=== PATIENT | female | born 1970 | race Caucasian/White ===

== ENCOUNTER 2022-11-22 07:49 | Day surgery (SDC) | payer MEDICAID, SELFPAY ==
--- NOTE | 2022-11-22 | IMM_PTH ---
PATIENT: DARRYL BRADLEY LOC: [facility] – [place] U#:[id number] AGE/SX: 52/F ROOM: RE11/22/[address]: Dr. Jacquelin Hannon MD : 1970 BED: DIS: 11/22/2022 SPEC #: [id number] RECD: 11/26/22 13:58 STATUS: ROLANDA REQ #: [id number] DENILSON: 11/22/22 00:[address]: Jacquelin Hannon DEPT: IMMUNOHISTOCHEMISTRY RECD BY: Codie Mcintyre ENTERED: 11/26/22 13:59 SP TYPE: IMMUNO OTHR DR: No Primary Care Phys Tissues: Skin of face, NOS Procedures: CK5-6 (initial) CK5-6 (add) MART1 (add) P40 (add) S-100 (add) PHYSICIAN & INSTITUTION [place] [address] SPECIMEN INFORMATION: Tissue Source: Right protestant Clinical Info: Melanoma in situ of face Specimen Number: [id number] #1-3 CPT code: 09590, 82491 x11 METHODOLOGY: Deparaffinized sections of prefer/formalin-fixed tissue or PAP/DQ stained slides are incubated with monoclonal/polyclonal antibodies/oligonucleotide probes. Localization is made via biotin free immunoperoxidase method. Appropriate controls are performed and reacted as expected. Results on target cell population are indicated in the following table: RESULTS: ANTIBODY / CLONE RESULT Block 1 CK5-6 (D5 & 1684) negative P40 (BC28) negative S-100 (4C4.9) positive MART-1 (A-103) positive Block 2 CK5-6 (D5 & 1684) negative P40 (BC28) negative S-100 (4C4.9) positive MART-1 (A-103) positive Block 3 CK5-6 (D5 & 1684) negative P40 (BC28) negative S-100 (4C4.9) positive MART-1 (A-103) positive These tests were developed and their performance characteristics determined by [facility]. They may not have been cleared or approved by the U.S. Food and Drug Administration. The FDA has determined that such clearance or approval is not necessary. The above immunohistochemical/dualISH markers are ordered and reviewed by the Pathologist. INTERPRETATION: Melanoma in situ of face: Atypical intraepidermal melanocytic proliferation on sun-damaged skin, consistent with melanoma in situ, margins free. See comment. Zonia 12/05/2022 The specimen is sent to [facility] for expert opinion, reviewed by Dr. Bishop and the above diagnosis is rendered. The complete report is viewable in the patient's EMR. Case has been reviewed in consultation with Dr. Beckham who concurs with the above diagnosis. IDC:AM
[2022-11-22] MEDS: Lactated Ringers 1,000 ML 15 ML IV (08:13)
[2022-11-22 08:15] VITALS: BP 128/90; PULSE 90; RESP 18; TEMP 37.3; O2SAT 100; BMI 25.7
--- NOTE | 2022-11-22 08:47 | HP.PCM_ITS ---
[facility] - General General Date of Admission: 11/22/22 Date of Service: 11/22/22 Chief Complaint: Recent diagnosis of melanoma in situ right uatsdin HPI Narrative DARRYL BRADLEY, is a 52 F who presents for excision of a melanoma in situ of her right uatsdin. She presents for excision with submission for pathologic evaluation. She is aware that depending on the final pathology, there is a potential for further surgery which may require a wider margin or lymph node dissection. PFS Medical History Chronic cough History of ankle fracture Hypertension Marijuana use Post-menopausal Restless legs Shortness of breath on exertion Smoker Home Medications NK 10/02/22 [History Last Taken Unknown] Allergy/AdvReac Type Severity Reaction Status Date / Time No Known Allergies Allergy Verified 11/15/22 15:16 Family History (Updated 10/02/22 @ 11:46 by Gail Bolanos) Other Hypertension Kidney disease Liver disease Melanoma Surgical History History of appendectomy History of delivery Social History (Updated 10/02/22 @ 11:45 by Gail Bolanos) Smoking Status: Current every day smoker tobacco type: cigarettes alcohol intake: current alcohol intake frequency: a few times a week substance use type: marijuana additional social history: Rarely uses aspirin. Does not use ibuprofen. Vital Signs Vital Signs Vital Signs: 11/22/22 08:15 11/22/22 08:15 Temperature 99.1 F Temperature Source Temporal Pulse Rate 90 Respiratory Rate 18 Respiratory Pattern Normal Blood Pressure 128/90 H Blood Pressure Mean 102 Blood Pressure Source Monitor Blood Pressure Position Semi-Fowlers Blood Pressure Location Left Arm Pulse Ox 100 Oxygen Delivery Method Room Air Weight Weight: 136 lb Body Mass Index (BMI) 25.7 Physical Exam Const alert, oriented x3, no apparent distress, average body habitus and well nourished General Appearance: cooperative and well developed Orientation / Consciousness: oriented to person, oriented to place and oriented to time HEENT head/scalp atraumatic, external ears normal and external nose normal Head and Scalp: normal to inspection, normocephalic, atraumatic and abrasion Face and Sinus: normal facial exam and face symmetric Nose: external nose normal External Ear: external ears normal External Auditory Canal: EAC's normal Mouth: lips normal Eyes PERRL, EOMs intact bilaterally and conjunctivae normal General Eye: normal appearance of both eyes Periorbital: periorbital findings normal Eyelid: eyelids normal Conjunctiva: conjunctiva normal Pupil: PERRL Neck full ROM Lymph Lymphatic: no lymphadenopathy noted Chest inspection of chest normal Breast/Axilla Palpation: no axillary lymphadenopathy Resp normal respiratory effort, normal air movement and clear to auscultation bilaterally Auscultation: clear to auscultation bilaterally Cardio regular rate, regular rhythm, S1 normal heart sound, S2 normal heart sound and no murmurs Rate: regular rate Rhythm: regular rhythm GI soft to palpation and non-tender Extremity normal to inspection and full ROM General Extremity: normal exam except as noted Skin Skin Narrative: Patient with an irregularly pigmented lesion of the right uatsdin. There is nellie dence of biopsy through the midportion of the lesion. General Skin Exam: turgor normal Neuro oriented x3, CN's II-XII intact bilaterally, moves all extremities, no focal motor deficits and no sensory deficits noted Sensorium / Orientation: awake, alert, oriented to person, oriented to place and oriented to time Speech: speech normal Gait (Neuro): normal gait Psych mental status grossly normal Attention / Concentration: concentration grossly intact Memory / Cognition: memory grossly intact Assessment & Plan Assessment/Plan (1) Melanoma in situ of face: PLAN: Plan Patient for excision of a melanoma in situ of the right uatsdin. There is a potential for skin graft over the resulting wound primary closure is not possible. Additionally I have reviewed with the patient and her brother that depending on the depth and character of the melanoma, she may require additional surgery depending on the resulting pathology. This will be available by her next appointment. Because of the location in the uatsdin, I also reviewed the potential for nerve damage which could cause inability to raise her eyebrow on this side. I reviewed with her that skin graft, if needed, would be harvested from either behind the ear or her leg. She and her brother voiced understanding and wished to proceed.
[2022-11-22] MEDS: Clindamycin 900 MG/50 ML BAG 75 MG IV (08:58)
--- NOTE | 2022-11-22 09:00 | LES_PTH ---
PATIENT: DARRYL BRADLEY LOC: [facility] [place] U#:[id number] AGE/SX: 52/F ROOM: RE11/22/[address]: Dr. Jacquelin Hannon MD : 1970 BED: DIS: 11/22/2022 SPEC #: [id number] RECD: 11/22/22 11:08 STATUS: ROLANDA REJuaquin #: [id number] DENILSON: 11/22/22 09:[address]: Jacquelin Hannon DEPT: SURGICAL PATHOLOGY RECD BY: Basia Sawyer ENTERED: 11/22/22 11:39 SP TYPE: Lesion OTHR DR: No Primary Care Phys Tissues: Skin of face, NOS Procedures: Surgery Specimen Level IV HEADER OPERATION: Wide excision melanoma in situ worship PRE-OP DIAGNOSIS: Melanoma in situ of face TISSUE SUBMITTED: Site of melanoma in situ right worship, 2 sutures paulina superior aspect, 1 suture rosen anterior aspect, sutures for orientation MICROSCOPIC DIAGNOSIS Melanoma in situ of face: Atypical intraepidermal melanocytic proliferation on sun-damaged skin, consistent with melanoma in situ, margins free. See comment. SJ:rg 12/05/2022 COMMENT The specimen is sent to [facility] for expert opinion, reviewed by Dr. Bishop and the above diagnosis is rendered. Dr. Bishop also commented the trailing edge of melanoma in situ is focally 0.5 cm away from the closest peripheral margin. There is focal dermal fibrosis suggestive of scar secondary to prior procedure. The complete report is viewable in the patient's EMR. Immunohistochemistry ([id number]) supports the above diagnosis. The lesion is 0.5 cm away from the closest inferior and anterior margin. Case has been reviewed in consultation with Dr. Beckham who concurs with the above diagnosis. IDC:AM MICROSCOPIC DESCRIPTION Slides are reviewed. GROSS DESCRIPTION Received in fixative is one container labeled with the patient's name and designated site of melanoma in situ . The specimen consists of an irregular fragment of excised forte skin measuring 3.0 x 2.0 cm and a depth of excision measuring 0.2 cm. The specimen has been oriented by the surgeon and is differentially inked as follows: superior - blue, inferior - black, anterior - green, posterior - red and mid deep portion of the biopsy - yellow. No distinct lesion is identified on the cutaneous surface. The specimen is serially sectioned and totally submitted in three cassettes. / AM:lolita 11/23/2022 TC: CPT: 05235
[2022-11-22] MEDS: Lidocaine 1% /Epi 1:100 (50ml) 50 ML VIAL (09:25)
[2022-11-22] MEDS: Bacitracin 500 UNITS/GM PACKET (10:30)
[2022-11-22] MEDS: Mineral Oil 30 ML UDC (10:30)
--- NOTE | 2022-11-22 10:40 | DCINST_ITS ---
Discharge Instructions Diet Discharge Diet: No restrictions Activity Additional Activity Instructions:: Keep back elevated (recliner position) for the next 4-5 nights to decrease swelling and bleeding. Dressing / Incision Additional Dressing/Incision Instructions:: Keep the dressing dry. Do not remove dressing. May apply a thin layer of antibiotic ointment (like neosporin, bacitracin, or triple antibiotic ointment) to the posterior ear area 1 x a day. Follow Up Care Please Follow Up With: Jacquelin Hannon MD When: in 1 week Test Results: Test results from this visit will be discussed in further detail at your follow- up appointment, if applicable. Discharge Plan Admission Attending Provider: Jacquelin Hannon Primary Care Provider: Care Physician,Pilar Primary Discharge Orders/Prescriptions Referrals / Follow Up: Care Physician,No Primary [Primary Care Provider] - Disposition Disposition (needs filled in before D/C Order can be placed): Home, Self Care
--- NOTE | 2022-11-22 10:47 | DCINST_ITS ---
Discharge Instructions Diet Discharge Diet: No restrictions Activity Additional Activity Instructions:: Keep back elevated (recliner position) for the next 4-5 nights to decrease swelling and bleeding. Dressing / Incision Additional Dressing/Incision Instructions:: Keep the dressing dry. Do not remove dressing. May apply a thin layer of antibiotic ointment (like neosporin, bacitracin, or triple antibiotic ointment) to the posterior ear area 1 x a day. Follow Up Care Please Follow Up With: Jacquelin Hannon MD Test Results: Test results from this visit will be discussed in further detail at your follow- up appointment, if applicable. Discharge Plan Admission Attending Provider: Jacquelin Hannon Primary Care Provider: Care Physician,Pilar Primary Discharge Orders/Prescriptions Prescriptions: New cephalexin 500 mg capsule 500 mg PO BID 7 Days Qty: 14 0RF Referrals / Follow Up: Care Physician,No Primary [Primary Care Provider] - Disposition Disposition (needs filled in before D/C Order can be placed): Home, Self Care
--- NOTE | 2022-11-22 10:49 | PCM.OPRPT ---
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 She is aware that because this had been biopsied before leaving most of the lesion there, there may be the need for additional surgery depending on the character and depth of the residual lesion. She is also aware of the potential for loss of function of the temporal branch of the facial nerve which underlies the site. I reviewed the potential need for skin graft with her. Informed consent was obtained. The patient was brought to the operating room and placed under general anesthesia in the supine position. Care is taken to pad all pressure points as well as applied sequential compression stockings during the procedure. A warming pad is also used. The right face and ear area as well as her right thigh are prepped and draped in the usual sterile fashion. Approximately 0.5 to 0.8 cm margin were marked around the periphery of the visible pigmented lesion. 1% Xylocaine with epinephrine is used to inject the site to facilitate hemostasis. Orientation is demarcated. The lesion is then excised to subcutaneous fat and passed off the operative field. Superior margin is marked with 2 sutures and the anterior margin is marked with 1 suture. Hemostasis is controlled with cautery. The site is made smaller by bringing the margins inward creating a final defect requiring skin graft to 6 cm?. A full-thickness skin graft is harvested from the posterior aspect of the right ear after anesthetizing the area with 1% Xylocaine with epinephrine to facilitate hemostasis. The skin graft is taken to dermis and excised. Hemostasis is controlled with cautery. The resulting posterior wound is closed with a horizontal mattress chromic suture. Antibiotic ointment is placed on the site. Residual adipose tissue was removed from the posterior aspect of the graft. It is laid in position of the defect of the right nondenominational. It is initially anchored in place with tissue glue. Following this, 8 silk sutures were used around the periphery for the tie-over dressing. The graft was further anchored in place with a running plain gut suture. Small holes were put in the graft to allow egress of fluids. Xeroform is placed on the graft followed by mineral oil soaked cotton balls. A tie-over dressing is then tied. Antibiotic ointment is placed on the periphery of the tie-over dressing as well as on the posterior ear. She tolerated the procedure well and was taken to the recovery area in an awakening in stable condition. Needle and sponge counts are correct. Complications None Admit VTE Documentation VTE Mechan Device Prophylaxis: SCD's
[2022-11-22 10:50] VITALS: BP 128/90; BP 131/88; PULSE 78; RESP 16; TEMP 36.2; O2SAT 100
[2022-11-22 11:00] VITALS: BP 123/86; BP 128/90; PULSE 79; RESP 16; O2SAT 100
[2022-11-22 11:12] VITALS: BP 118/82; BP 128/90; PULSE 84; RESP 16; TEMP 36.7; O2SAT 100
[2022-11-22 11:36] VITALS: BP 128/90
== END 2022-11-22 12:05 | disposition home or self-care (01) ==
LOC: SDC 07:52 → AC 07:53
PROVIDERS: Referring Provider Plastic Surgery; Visit Provider Plastic Surgery
PROC: (CPT 15240; principal; 2022-11-22 08:45)
DX: D03.39 Melanoma in situ of other parts of face (principal); I10 Essential (primary) hypertension; Z78.0 Asymptomatic menopausal state; F17.210 Nicotine dependence, cigarettes, uncomplicated
CPT/HCPCS: 15240; 00300; 88305; 88341; 88342; J7120; J2405